=== PATIENT | male | born 1970 | race Caucasian/White ===

== ENCOUNTER 2019-10-02 21:54 | Emergency (ER) | payer OTHER ==
[~2019-10-02] VITALS: Ht 193 cm; Wt 107.0 kg
[2019-10-02] MEDS ORDERED: BUPR150ER (22:09)
[2019-10-02] MEDS ORDERED: WARF7.5 PO (22:10)
[2019-10-02] MEDS ORDERED: WARF5 PO (22:10)
[2019-10-02 23:10] LABS: Hematocrit 44.3 % (37.0-53.0)
[2019-10-02 23:25] LABS: International Normalized Ratio 1.89; Prothrombin Time Results 19.5 Sec (9.7-11.5)
== END 2019-10-03 | disposition home or self-care (01) ==
LOC: ER 21:54
PROVIDERS: Physician Assistant
DX: R04.0 Epistaxis (principal); Z91.041 Radiographic dye allergy status; Z79.01 Long term (current) use of anticoagulants
CPT/HCPCS: 30903; 85014; 85018; 85610; 99283-25; A9270